=== PATIENT | female | born 1990 | race Caucasian/White ===

== ENCOUNTER 2017-09-07 23:07 | Emergency (ER) | payer OTHER ==
[~2017-09-07] VITALS: Ht 162.6 cm; Wt 67.0 kg
[2017-09-07 23:33] LABS: HEMATOCRIT 37.1 % (36.0-46.0); HEMOGLOBIN 12.6 G/DL (11.9-15.5); MCV 88.3 FL (83-99); PLATELET COUNT 281 K/uL (156-360); RBC DIS.WIDTH-CV 12.8 % (11.8-14.6); RBC DIS.WIDTH-SD 41.4 % (39-53); WHITE BLOOD COUNT 7.5 K/uL (4.1-10.2)
[2017-09-07 23:42] LABS: ALBUMIN 4.3 g/dL (3.2-4.8); CHLORIDE 107 mEq/L (99-109); POTASSIUM 4.3 mEq/L (3.7-5.4); SODIUM 142 mEq/L (136-147)
[2017-09-07 23:44] LABS: GLUCOSE 81 mg/dL (70-99)
[2017-09-07 23:46] LABS: TOTAL BILIRUBIN 0.6 mg/dL (0.0-1.0)
[2017-09-07 23:48] LABS: ALKALINE PHOSPHATASE 89 IU/L (3-129); CREATININE 0.7 mg/dL (0.6-1.3); GFR ESTIMATE (CALCULATED) > 59 mL/min/
[2017-09-07 23:49] LABS: UREA NITROGEN (BUN) 13 mg/dL (9-23)
[2017-09-07 23:50] LABS: AST (GOT) 18 IU/L (2-34)
[2017-09-07 23:51] LABS: ALT (GPT) 30 IU/L (3-49)
[2017-09-07 23:57] LABS: QUANTITATIVE HCG < 4.0 MIU/ML
[2017-09-08 00:03] LABS: LIPASE 25 U/L (1.0-51.0)
[2017-09-08 00:45] LABS: SOURCE SWAB
[2017-09-08 00:55] LABS: APPEARANCE CLEAR ((CLEAR)); BILIRUBIN NEGATIVE; BLOOD LARGE; COLOR YELLOW ((YELLOW)); GLUCOSE (STRIP) NEGATIVE; KETONES NEGATIVE; LEUKOCYTES SMALL; NITRITE NEGATIVE; PROTEIN (STRIP) NEGATIVE; SPECIFIC GRAVITY 1.021 (1.000-1.030); UROBILINOGEN 0.2 MG/DL (0.2-1.0)
[2017-09-08 01:12] LABS: BACTERIA NONE SEEN /HPF; EPITHELIAL CELLS RARE /HPF; MUCUS TRACE /LPF; UCUL ADDED? NO; WHITE BLOOD CELLS 0-5 /HPF (0-5)
[2017-09-08] MEDS ORDERED: NAPROSYN500 MG PO (03:30)
[2017-09-08 03:44] VITALS: BP 104/62
[2017-09-08 04:03] LABS: CANDIDA DNA PROBE NEGATIVE; GARDNERELLA DNA PROBE NEGATIVE; TRICHOMONAS DNA PROBE NEGATIVE
== END 2017-09-08 03:45 | disposition home or self-care (01) ==
LOC: EME 23:07
PROVIDERS: Physician Assistant
DX: R10.2 Pelvic and perineal pain (principal)
CPT/HCPCS: 74177; 76856; 80053; 81003; 83690; 84702; 85027; 87210; 87480; 87491; 87510; 87591; 87660; 99281; 99284

== ENCOUNTER 2017-10-03 00:36 | Emergency (ER) | payer OTHER ==
[~2017-10-03] VITALS: Ht 162.6 cm; Wt 67.9 kg
[~2017-10-03 00:36] MED LIST: NAPROSYN500 MG PO
[2017-10-03 05:06] VITALS: BP 95/54
== END 2017-10-03 05:06 | disposition home or self-care (01) ==
LOC: EME 00:36
PROVIDERS: Physician Assistant
DX: J18.9 Pneumonia, unspecified organism (principal); S30.0XXA Contusion of lower back and pelvis, initial encounter; W01.0XXA Fall on same level from slipping, tripping and stumbling without subsequent striking against object, initial encounter; Y99.0 Civilian activity done for income or pay; J06.9 Acute upper respiratory infection, unspecified; R51 Headache
CPT/HCPCS: 71046; 72100; 72220; 87502; 87651 90; 99281; 99284